=== PATIENT | male | born 1930 | race Caucasian/White ===

== ENCOUNTER 2016-08-26 09:07 | Day surgery (SDC) | payer MEDICARE, OTHER ==
[~2016-08-26 09:07] MED LIST: DIPHENHYDRAMINE HCL 50 MG/ML VIAL ONE; EPINEPHRINE INJ 1 MG/10 ML DISP.SYRIN ONE; FENTANYL CITRATE INJ/PF 100 MCG/2 ML AMPUL ONE; FLUMAZENIL INJ 0.5 MG/5 ML VIAL IV ONE; GLUCAGON,HUMAN RECOMB 1 MG INJ ONE; MIDAZOLAM 2 MG/2 ML INJ ONE; NALOXONE HCL INJ/PF 0.4 MG/1 ML SDV ONE; ONDANSETRON HCL INJ/PF 4 MG/2 ML SDV ONE; PROMETHAZINE HCL INJ 25 MG/1 ML VIAL ONE
--- NOTE | 2016-08-26 10:27 | Operative Report ---
Operative Report DATE OF SURGERY: 08/26/16 Operative Report: The risks, benefits and alternatives of the procedure including risks of bleeding, perforation requiring surgery are explained to the patient detail and informed consent is obtained. Patient is placed in a left lateral decubital position. A rectal examination was done which did not reveal any masses tears or fissures. Timeout is called. 2 mg of Versed administered. An Olympus videoscope was inserted into the patient's rectum keeping the lumen in site at all times the scope was then gradually advanced all the way to the cecum. The cecum as identified by the usual anatomical landmarks including the ileocecal valve as well as the appendiceal office. Photodocumentation was obtained. Because of the patient's complaints in the right lower quadrant and abdominal distention in the area intubation of the terminal ileum is done mild terminal ileitis is noted biopsies obtained. Prep is good photodocumentation is obtained. The scope was then sequentially pulled back via the rest segments of the colon including the ascending colon hepatic flexure answers colon splenic flexure descending colon and finally into the rectosigmoid colon. Mucosa does otherwise appeared to be normal. Retroflexion maneuvers performed. Severe diverticulosis is noted. PREOPERATIVE DIAGNOSIS: Right lower quadrant discomfort, abdominal distention. POSTOPERATIVE DIAGNOSIS: Mild terminal ileitis. Severe sigmoid diverticulosis. OPERATION: Colonoscopy with biopsy. SURGEON: DARCIE BUTLER ANESTHESIA: Moderate Sedation - 2 mg Versed TISSUE REMOVED OR ALTERED: Terminal ileal specimens obtained COMPLICATIONS: None. ESTIMATED BLOOD LOSS: none. INTRAOPERATIVE FINDINGS: No other masses, AVMs, ischemia noted. PROCEDURE: Patient tolerated the procedure well. No immediate postprocedure complications are noted. Patient is discharged in good condition. Date of discharge 08/26/2016. Discharge diet: Regular. Discharge activity: Regular. We'll await on biopsies. 2-3 week follow-up to discuss findings. Patient is instructed to go to emergency room or call the office should there be any further problems or questions.
[2016-08-26 11:22] VITALS: BP 115/59
== END 2016-08-26 11:20 | disposition home or self-care (01) ==
LOC: END 09:07
PROVIDERS: ATTEND Internal Medicine Gastroenterology
PROC: 0DBB8ZX Excision of Ileum, Via Natural or Artificial Opening Endoscopic, Diagnostic (ICD-10-PCS; principal; 2016-08-26 09:30)
DX: K52.9 Noninfective gastroenteritis and colitis, unspecified (principal); K57.30 Diverticulosis of large intestine without perforation or abscess without bleeding; I10 Essential (primary) hypertension; Z79.899 Other long term (current) drug therapy; Z79.82 Long term (current) use of aspirin; Z88.1 Allergy status to other antibiotic agents; Z88.8 Allergy status to other drugs, medicaments and biological substances
CPT/HCPCS: 45380; 88305 ×2; J2250; J0171; J1200; J1610; J2310; J2405; J2550; J3010; J3490

== ENCOUNTER → 2016-12-28 | Outpatient (CLI) | payer MEDICARE ==
[2016-12-28 10:05] LABS: ALANINE AMINOTRANSFERASE 34 U/L (21-72); ALBUMIN 4.3 g/dL (3.5-5.0); ALKALINE PHOSPHATASE 61 U/L (38-126); ASPARTATE AMINO TRANSFERASE 31 U/L (17-59); BILIRUBIN,DIRECT 0.2 mg/dL (0.0-0.4); BILIRUBIN,TOTAL 0.8 mg/dL (0.2-1.3); CHOLESTEROL 106.89 mg/dL (0-200); Direct HDL 53 mg/dL (>40); TOTAL PROTEIN 6.9 g/dL (6.3-8.2); TRIGLYCERIDES 67 mg/dL (<150)
[2016-12-28 10:17] LABS: DIRECT LDL 34 mg/dL (<100)
== END ==
LOC: OD 08:30
PROVIDERS: ATTEND Internal Medicine Cardiovascular Disease
DX: E78.00 Pure hypercholesterolemia, unspecified (principal); Z79.899 Other long term (current) drug therapy
CPT/HCPCS: 36415; 80061; 80076

== ENCOUNTER → 2017-03-26 | Outpatient (CLI) | payer OTHER ==
[2017-03-26 08:33] LABS: ANION GAP 12 (5-19); BLOOD UREA NITROGEN 16 mg/dL (7-20); CALCIUM 9.6 mg/dL (8.4-10.2); CARBON DIOXIDE 25 mmol/L (22-30); CHLORIDE 101 mmol/L (98-107); CREATININE RESULT 0.88 mg/dL (0.52-1.25); GLUCOSE 90 mg/dL (75-110); MAGNESIUM 1.9 mg/dL (1.6-2.3); POTASSIUM 3.6 mmol/L (3.6-5.0); SODIUM 137.9 mmol/L (137-145)
== END ==
LOC: OD 07:15
PROVIDERS: ATTEND Internal Medicine Cardiovascular Disease
DX: Z79.899 Other long term (current) drug therapy (principal)
CPT/HCPCS: 36415; 80048; 83735

== ENCOUNTER → 2017-04-26 | Outpatient (CLI) | payer MEDICARE, OTHER ==
[2017-04-26 14:39] LABS: ANION GAP 13 (5-19); BLOOD UREA NITROGEN 23 mg/dL (7-20); CALCIUM 10.1 mg/dL (8.4-10.2); CARBON DIOXIDE 24 mmol/L (22-30); CHLORIDE 93 mmol/L (98-107); CREATININE RESULT 1.05 mg/dL (0.52-1.25); GLUCOSE 96 mg/dL (75-110); POTASSIUM 4.5 mmol/L (3.6-5.0); SODIUM 130.1 mmol/L (137-145)
== END ==
LOC: OD 13:17
PROVIDERS: ATTEND Internal Medicine Cardiovascular Disease
DX: Z79.899 Other long term (current) drug therapy (principal)
CPT/HCPCS: 36415; 80048

== ENCOUNTER → 2017-10-19 | Outpatient (CLI) | payer MEDICARE ==
[2017-10-19 10:23] LABS: BLOOD UREA NITROGEN 26 mg/dL (7-20); CALCIUM 10.5 mg/dL (8.4-10.2); GLUCOSE 96 mg/dL (75-110)
[2017-10-19 10:24] LABS: ALANINE AMINOTRANSFERASE 36 U/L (21-72); ALBUMIN 4.8 g/dL (3.5-5.0); ALKALINE PHOSPHATASE 55 U/L (38-126); ANION GAP 10 (5-19); ASPARTATE AMINO TRANSFERASE 30 U/L (17-59); BILIRUBIN,DIRECT 0.4 mg/dL (0.0-0.4); BILIRUBIN,TOTAL 0.8 mg/dL (0.2-1.3); CARBON DIOXIDE 24 mmol/L (22-30); CHLORIDE 98 mmol/L (98-107); CHOLESTEROL 113.46 mg/dL (0-200); SODIUM 132.4 mmol/L (137-145); TOTAL PROTEIN 7.7 g/dL (6.3-8.2); TRIGLYCERIDES 76 mg/dL (<150)
[2017-10-19 10:34] LABS: DIRECT LDL 34 mg/dL (<100)
== END ==
LOC: OD 09:11
PROVIDERS: ATTEND Internal Medicine Cardiovascular Disease
DX: I25.10 Atherosclerotic heart disease of native coronary artery without angina pectoris (principal); E78.00 Pure hypercholesterolemia, unspecified; E87.5 Hyperkalemia; I10 Essential (primary) hypertension; Z79.899 Other long term (current) drug therapy
CPT/HCPCS: 36415; 80048; 80061; 80076; 83735

== ENCOUNTER → 2017-11-27 | Outpatient (CLI) | payer MEDICARE ==
[2017-11-27 09:48] LABS: ANION GAP 14 (5-19); BLOOD UREA NITROGEN 38 mg/dL (7-20); CALCIUM 10.5 mg/dL (8.4-10.2); CARBON DIOXIDE 26 mmol/L (22-30); CHLORIDE 99 mmol/L (98-107); GLUCOSE 103 mg/dL (75-110); POTASSIUM 4.8 mmol/L (3.6-5.0); SODIUM 139.2 mmol/L (137-145)
== END ==
LOC: OD 08:05
PROVIDERS: ATTEND Internal Medicine Cardiovascular Disease
DX: I10 Essential (primary) hypertension (principal); Z79.899 Other long term (current) drug therapy
CPT/HCPCS: 36415; 80048

== ENCOUNTER → 2018-01-04 | Outpatient (CLI) | payer MEDICARE | LOC: OD 08:31 | PROVIDERS: ATTEND Family Medicine | DX: R10.13 Epigastric pain (principal) | CPT/HCPCS: 36415; 82565 ==

== ENCOUNTER → 2018-01-05 | Outpatient (CLI) | payer MEDICARE ==
--- NOTE | 2018-01-05 16:27 | RADIOLOGY REPORT (SQ) ---
EXAM DESCRIPTION: CT ABDOMEN ORAL CONTRAST ONLY COMPLETED DATE/TIME: 01/05/2018 2:34 pm REASON FOR STUDY: EPIGASTRIC PAIN R10.13 EPIGASTRIC PAIN COMPARISON: None. TECHNIQUE: CT scan of the abdomen performed without intravenous contrast and with oral contrast. Im ages reviewed with lung, soft tissue, and bone windows. Reconstructed coronal and sagittal MPR image s reviewed. All images stored on PACS. All CT scanners at this facility use dose modulation, iterative reconstruction, and/or weight based d osing when appropriate to reduce radiation dose to as low as reasonably achievable (ALARA). [facility]: Dose Right [facility]: CareDose [facility]: Dose Right [facility]: Teradose 4D [facility]: Rapport RADIATION DOSE: CT Rad equipment meets quality standard of care and radiation dose reduction techniq ues were employed. CTDIvol: 5.3 mGy. DLP: 161 mGy-cm.mGy. LIMITATIONS: None. FINDINGS: LOWER CHEST: No significant findings. No nodules or infiltrates. NONCONTRASTED LIVER, SPLEEN, ADRENALS: Evaluation limited by lack of IV contrast. No identified sign ificant masses. Small granulomatous calcifications in the liver and spleen. PANCREAS: No masses. No peripancreatic inflammatory changes. GALLBLADDER: No identified stones by CT criteria. No inflammatory changes to suggest cholecystitis. RIGHT KIDNEY AND URETER: No suspicious masses. Assessment limited by lack of IV contrast. No signif icant calcifications. No hydronephrosis or hydroureter. LEFT KIDNEY AND URETER: No suspicious masses. Assessment limited by lack of IV contrast. No signifi cant calcifications. No hydronephrosis or hydroureter. AORTA AND RETROPERITONEUM: Atherosclerosis with prominent plaques at the origins of the celiac and SM A. BOWEL AND PERITONEAL CAVITY: Questionable smooth ovoid mass in the posterior stomach versus dependent solid food material. See images 9 through 15. Numerous diverticular arising from the descending an d sigmoid colon. APPENDIX: Not included. ABDOMINAL WALL: No abdominal wall hernias. BONES: Chronic lower thoracic compression changes. OTHER: No other significant finding. IMPRESSION: 1. Questionable gastric mass versus dependent solid food material. 2. Atherosclerosis as described. 3. Diverticulosis coli. 4. Chronic changes in the spine. TECHNICAL DOCUMENTATION: JOB ID: [id number] Quality ID # [id number]: Final reports with documentation of one or more dose reduction techniques (e.g., Au tomated exposure control, adjustment of the mA and/or kV according to patient size, use of iterative reconstruction technique) 2010 [employer]- All Rights Reserved Reading location - IP/workstation name: [email or web address]
== END ==
LOC: RAD 07:45
PROVIDERS: ATTEND Family Medicine
DX: R10.13 Epigastric pain (principal)
CPT/HCPCS: 74150

== ENCOUNTER 2018-01-19 09:55 | Day surgery (SDC) | payer MEDICARE ==
[2018-01-19] MEDS ORDERED: DIPHENHYDRAMINE HCL 50 MG/ML VIAL ONE (10:09)
[2018-01-19] MEDS ORDERED: ONDANSETRON HCL INJ/PF 4 MG/2 ML SDV ONE (10:09)
[2018-01-19] MEDS ORDERED: GLUCAGON,HUMAN RECOMB 1 MG INJ ONE (10:10)
[2018-01-19] MEDS ORDERED: FENTANYL CITRATE INJ/PF 100 MCG/2 ML AMPUL ONE (10:10)
[2018-01-19] MEDS ORDERED: NALOXONE HCL INJ/PF 0.4 MG/1 ML SDV ONE (10:10)
[2018-01-19] MEDS ORDERED: EPINEPHRINE INJ 1 MG/10 ML DISP.SYRIN ONE (10:10)
[2018-01-19] MEDS ORDERED: FLUMAZENIL INJ 0.5 MG/5 ML VIAL ONE (10:10)
[2018-01-19] MEDS: MIDAZOLAM 2 MG/2 ML INJ ONE ×2 (10:30→10:32)
--- NOTE | 2018-01-19 10:43 | Operative Report ---
Operative Report DATE OF SURGERY: 01/19/18 Operative Report: The risks benefits and alternatives of the procedure explained to the patient in detail and informed consent is obtained.A GIF Olympus video scope was inserted into the patient's mouth and hypopharynx, the esophagus is identified intubated and insufflated ,the scope was then advanced through the esophagus stomach and duodenum, retroflexion maneuver is done, the esophagus stomach and first and second portions of the duodenum examined PREOPERATIVE DIAGNOSIS: Epigastric pain. Abnormal CT scan POSTOPERATIVE DIAGNOSIS: No submucosal mass noted. No mucosal lesion noted. Gastritis biopsy OPERATION: EGD with biopsy SURGEON: DARCIE BUTLER ANESTHESIA: Moderate Sedation - 2 mg of Versed. Conscious sedation monitoring time 30 minutes. TISSUE REMOVED OR ALTERED: As noted above. COMPLICATIONS: None. ESTIMATED BLOOD LOSS: None. INTRAOPERATIVE FINDINGS: As noted above. PROCEDURE: Patient tolerated procedure well. No immediate postprocedure complications are noted. Patient discharged in good condition. Discharge date 01/19/2018. Discharge diet: Regular. Discharge activity: Regular. 2-3 week follow-up to discuss findings. Patient is instructed to call the office or proceed to the emergency room should there be any further problems or questions. We will wait on the pathology.
[2018-01-19 11:47] VITALS: BP 123/60
== END 2018-01-19 11:50 | disposition home or self-care (01) ==
LOC: END 09:55
PROVIDERS: ATTEND Internal Medicine Gastroenterology
DX: K29.50 Unspecified chronic gastritis without bleeding (principal); K57.30 Diverticulosis of large intestine without perforation or abscess without bleeding; I10 Essential (primary) hypertension; I51.9 Heart disease, unspecified; Z79.899 Other long term (current) drug therapy; Z79.82 Long term (current) use of aspirin; Z79.51 Long term (current) use of inhaled steroids
CPT/HCPCS: 43239; 88342 ×2; 88305 ×2; J2250; J0171; J1200; J1610; J2310; J2405; J3010; J3490

== ENCOUNTER 2018-01-29 14:10 | Inpatient (IN) | payer MEDICARE ==
--- NOTE | 2018-01-29 15:09 | ER Document Report ---
ED Medical Screen (RME) - General Chief Complaint: Abdominal Pain Stated Complaint: ABDOMINAL PAIN/WEAKNESS Time Seen by Provider: 01/29/18 14:56 Notes: 87-year-old male. Diarrhea for approximately 6 weeks. Followed by GI. Upper endoscopy 2 weeks ago. Was placed on Cipro and Flagyl on . Continues to have abdominal pain and diarrhea. Mostly pain in the left lower quadrant. Losing weight. Always feeling sick now. CAT scan in the last month as well which was reportedly normal. I have greeted and performed a rapid initial assessment of this patient. A comprehensive ED assessment and evaluation of the patient, analysis of test results and completion of the medical decision making process will be conducted by additional ED providers. TRAVEL OUTSIDE OF THE [place] IN LAST 30 DAYS: No - Related Data Allergies/Adverse Reactions: cephalexin [Cephalexin] Allergy (Severe, Verified 01/19/18 10:07) unsure doxycycline [Doxycycline] Allergy (Severe, Verified 01/19/18 10:07) unsure Iodinated Contrast- Oral and IV Dye [IV Dye, Iodine Containing] Allergy (Severe , Verified 01/19/18 10:07) rash levofloxacin [From Levaquin] Allergy (Severe, Verified 01/19/18 10:07) unsure Past Medical History - Social History Chew tobacco use (# tins/day): No Frequency of alcohol use: Rare Drug Abuse: None - Past Medical History Cardiac Medical History: Reports: Hx Hypercholesterolemia, Hx Hypertension - on meds Denies: Hx Coronary Artery Disease, Hx Heart Attack Pulmonary Medical History: Denies: Hx Asthma, Hx Bronchitis, Hx COPD, Hx Pneumonia Neurological Medical History: Denies: Hx Cerebrovascular Accident, Hx Seizures Renal/ Medical History: Denies: Hx Peritoneal Dialysis GI Medical History: Reports: Hx Gastroesophageal Reflux Disease, Hx Hiatal Hernia. 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 Denies: Hx Open Heart Surgery, Hx Pacemaker - Immunizations Hx Diphtheria, Pertussis, Tetanus Vaccination: Yes Influenza Administration Date for 05/2017 - 10/2017 Season: 05/16/17 Review of Systems - Review of Systems Notes: Abdomen: Nausea, diarrhea, abdominal pain General: Weak, losing weight Constitutional: Malaise, Weakness Gastrointestinal: Abdominal pain, Diarrhea, Nausea Genitourinary: denies: Burning, Dysuria, Discharge Male Genitourinary: denies: Testicular pain, Penile discharge Musculoskeletal: denies: Back pain, Joint pain, Muscle pain Skin: denies: Dryness, Lesions, Lumps, Rash Hematologic/Lymphatic: denies: Anemia, Blood clots, Easy bleeding, Easy bruising Neurological/Psychological: denies: Confusion, Weakness, Numbness Physical Exam - Vital signs Vitals: Temp Pulse Resp BP Pulse Ox 98.2 F 57 L 20 133/51 H 96 01/29/18 14:28 01/29/18 14:01/29/18 14:01/29/18 14:01/29/18 14:28 Interpretation: Normal - General General appearance: Appears well, Alert - Respiratory Respiratory status: No respiratory distress Chest status: Nontender Breath sounds: Normal Chest palpation: Normal - Cardiovascular Rhythm: Regular Heart sounds: Normal auscultation Murmur: No - Abdominal Inspection: Normal Distension: No distension Bowel sounds: Normal Tenderness: Tender, Other - Mild tenderness left lower quadrant Organomegaly: No organomegaly - Extremities General upper extremity: Normal inspection, Nontender, Normal color, Normal ROM , Normal temperature General lower extremity: Normal inspection, Nontender, Normal color, Normal ROM , Normal temperature, Normal weight bearing. No: Ranjit's sign Course - Vital Signs Vital signs: Temp Pulse Resp BP Pulse Ox 98.2 F 57 L 20 133/51 H 96 01/29/18 14:28 01/29/18 14:01/29/18 14:01/29/18 14:01/29/18 14:28 Doctor's Discharge - Discharge Referrals: DARCIE BUTLER MD [Primary Care Provider] - Follow up as needed
[2018-01-29 16:16] LABS: ABSOLUTE EOSINOPHILS # (AUTO) 0.1 10^3/uL (0.0-0.6); ABSOLUTE LYMPHOCYTES (AUTO) 0.4 10^3/uL (0.5-4.7); ABSOLUTE MONOCYTES (AUTO) 0.7 10^3/uL (0.1-1.4); ABSOLUTE NEUT (AUTO) 5.6 10^3/uL (1.7-8.2); BASOPHILS % (AUTO) 0.6 % (0-2); EOSINOPHILS % (AUTO) 0.9 % (0-6); HEMATOCRIT 35.5 % (37.9-51.0); HEMOGLOBIN 12.7 g/dL (13.5-17.0); LYMPHOCYTES % (AUTO) 6.4 % (13-45); MEAN CORPUSCULAR HEMOGLOBIN 32.8 pg (27.0-33.4); MEAN CORPUSCULAR HGB CONC 35.8 g/dL (32.0-36.0); MEAN CORPUSCULAR VOLUME 92 fl (80-97); MONOCYTES % (AUTO) 10.3 % (3-13); PLATELET COUNT 194 10^3/uL (150-450); RED BLOOD COUNT 3.87 10^6/uL (4.35-5.55); RED CELL DISTRIBUTION WIDTH 12.6 % (11.5-14.0); SEGMENTED NEUTROPHILS % (AUTO) 81.8 % (42-78); TOTAL CELLS COUNTED % (AUTO) 100 %; WHITE BLOOD COUNT 6.8 10^3/uL (4.0-10.5)
[2018-01-29 16:30] LABS: ALANINE AMINOTRANSFERASE 29 U/L (21-72); ALBUMIN 4.7 g/dL (3.5-5.0); ALKALINE PHOSPHATASE 94 U/L (38-126); ANION GAP 15 (5-19); ASPARTATE AMINO TRANSFERASE 32 U/L (17-59); BILIRUBIN,DIRECT 0.3 mg/dL (0.0-0.4); BILIRUBIN,TOTAL 0.8 mg/dL (0.2-1.3); BLOOD UREA NITROGEN 26 mg/dL (7-20); CALCIUM 9.9 mg/dL (8.4-10.2); CARBON DIOXIDE 22 mmol/L (22-30); CHLORIDE 91 mmol/L (98-107); GLUCOSE 88 mg/dL (75-110); LIPASE 47.6 U/L (23-300); POTASSIUM 4.7 mmol/L (3.6-5.0); SODIUM 127.5 mmol/L (137-145); TOTAL PROTEIN 7.7 g/dL (6.3-8.2)
--- NOTE | 2018-01-29 16:35 | ER Document Report ---
ED GI/ - General Chief Complaint: Abdominal Pain Stated Complaint: ABDOMINAL PAIN/WEAKNESS Time Seen by Provider: 01/29/18 14:56 Notes: Patient is here because he is continuing to have abdominal pains and diarrhea which have been going on for a month or more. He indicates pain in the left side of his abdomen. He had a CT scan done about 4 weeks ago here at this hospital showing a possible gastric mass. Dr. Mcdonald has done an upper GI scope and family and patient are not sure of those results. Then, Wednesday, just 3 days ago, patient had a CT scan done at a local outpatient facility. His lighting engineering technician, Dr. Butler, put him on Cipro and Flagyl afternoon for possible treatment for diverticulitis. Patient is here today because he says is not doing any better. He feels weak and tired and continues to have pain. Says he thinks he has lost about 10 pounds over the past year. He has not had any significant nausea or vomiting, but has had diarrhea every day. Does not see blood in his diarrhea. Is not aware of any fever. His only abdominal surgery was a hernia repair. TRAVEL OUTSIDE OF THE [place] IN LAST 30 DAYS: No - Related Data Allergies/Adverse Reactions: cephalexin [Cephalexin] Allergy (Severe, Verified 01/19/18 10:07) unsure doxycycline [Doxycycline] Allergy (Severe, Verified 01/19/18 10:07) unsure Iodinated Contrast- Oral and IV Dye [IV Dye, Iodine Containing] Allergy (Severe , Verified 01/19/18 10:07) rash levofloxacin [From Levaquin] Allergy (Severe, Verified 01/19/18 10:07) unsure Past Medical History - Social History Smoking Status: Former Smoker Chew tobacco use (# tins/day): No Frequency of alcohol use: Rare Drug Abuse: None Family History: Reviewed & Not Pertinent Patient has suicidal ideation: No Patient has homicidal ideation: No - Past Medical History Cardiac Medical History: Reports: Hx Hypercholesterolemia, Hx Hypertension - on meds Denies: Hx Coronary Artery Disease, Hx Heart Attack Pulmonary Medical History: Denies: Hx Asthma, Hx Bronchitis, Hx COPD, Hx Pneumonia Neurological Medical History: Denies: Hx Cerebrovascular Accident, Hx Seizures GI Medical History: Reports: Hx Gastroesophageal Reflux Disease, Hx Hiatal Hernia. 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 EENT: Denies eye, ear, nose or mouth or throat pain or other symptoms. CARDIOVASCULAR: Denies chest pain. RESPIRATORY: Denies cough, chest congestion, or shortness of breath. GASTROINTESTINAL: See HPI. Denies nausea or vomiting, diarrhea daily, no blood present. GENITOURINARY: Denies difficulty or painful urinating, urinary frequency, blood in urine. MUSCULOSKELETAL: Denies back or neck pain. Denies joint pain or swelling. SKIN: Denies rash or skin lesions. NEUROLOGICAL: Denies LOC or altered mental status. Denies headache. Denies sensory loss or motor deficits. ALL OTHER SYSTEMS REVIEWED AND NEGATIVE. Physical Exam - Vital signs Vitals: Temp Pulse Resp BP Pulse Ox 98.2 F 57 L 20 133/51 H 96 01/29/18 14:28 01/29/18 14:28 01/29/18 14:28 01/29/18 14:28 01/29/18 14:28 Interpretation: Normal - Notes Notes: PHYSICAL EXAMINATION: GENERAL: Well-appearing, in no acute distress. Vital signs are all normal. HEAD: Atraumatic, normocephalic. EYES: Pupils equal round and reactive to light, extraocular movements intact. ENT: oropharynx clear without exudates. Moist mucous membranes. NECK: Normal range of motion, supple. LUNGS: Breath sounds clear and equal bilaterally. HEART: Regular rate and rhythm without murmurs. ABDOMEN: Soft, some tenderness of the left side of the abdomen, but no guarding or rebound. No masses. BACK: No tenderness throughout entire back. EXTREMITIES: Normal range of motion without pain. NEUROLOGICAL: Normal speech, weak, elderly gait. Normal sensory, motor, and reflex exams. Awake, alert, and oriented x3. Cranial nerves normal. PSYCH: Normal mood, normal affect. SKIN: Warm, dry, no rashes. Course - Vital Signs Vital signs: Temp Pulse Resp BP Pulse Ox 97.4 F 57 L 19 140/68 H 98 01/29/18 18:51 01/29/18 14:28 01/29/18 19:00 01/29/18 19:00 01/29/18 19:00 - Laboratory Result Diagrams: 01/29/18 15:55 01/29/18 15:55 Laboratory results interpreted by me: 01/29/18 01/29/18 01/29/18 15:55 15:55 17:20 RBC 3.87 L Hgb 12.7 L Hct 35.5 L Seg Neutrophils % 81.8 H Lymphocytes % 6.4 L Absolute Lymphocytes 0.4 L Sodium 127.5 L Chloride 91 L BUN 26 H Creatinine 1.27 H Est GFR (Non-Af Amer) 54 L Urine Ketones TRACE H Urine Blood SMALL H Ur Leukocyte Esterase TRACE H Discharge - Discharge Clinical Impression: Abdominal pain, Diverticulosis, Hyponatremia, Mild renal insufficiency Condition: Stable Disposition: ADMITTED OBSERVATION Admitting Provider: [facility] Admitted: Medical Floor Referrals: DARCIE BUTLER MD [ACTIVE STAFF] - Follow up as needed
[2018-01-29] MEDS ORDERED: 1/2 NORMAL SALINE 1,000 ML IV ONE (17:00)
[2018-01-29] MEDS ORDERED: NORMAL SALINE 1000 ML 1,000 ML IV ONE ×2 (17:00→20:20)
[2018-01-29 18:32] LABS: APPEARANCE,URINE CLEAR; BILIRUBIN,URINE NEGATIVE (NEGATIVE); COLOR,URINE YELLOW; GLUCOSE, URINE NEGATIVE (NEGATIVE); KETONES,URINE TRACE mg/dL (NEGATIVE); LEUKOCYTE ESTERASE,URINE TRACE (NEGATIVE); NITRITE,URINE NEGATIVE (NEGATIVE); PROTEIN,URINE NEGATIVE (NEGATIVE); URINE SPECIFIC GRAVITY 1.012; UROBILINOGEN,URINE NEGATIVE mg/dL (<2.0)
--- NOTE | 2018-01-29 18:47 | RADIOLOGY REPORT (SQ) ---
EXAM DESCRIPTION: CT ABD/PELVIS WITH IV ORAL COMPLETED DATE/TIME: 01/29/2018 6:19 pm REASON FOR STUDY: abd pain, diarrhea COMPARISON: CT abdomen and pelvis 07/21/2015 TECHNIQUE: CT scan of the abdomen and pelvis performed using helical scanning technique with dynamic intravenous contrast injection. No oral contrast. Images reviewed with lung, soft tissue, and bone windows. Reconstructed coronal and sagittal MPR images reviewed. Delayed images for evaluation of the urinary system also acquired. All images stored on PACS. All CT scanners at this facility use dose modulation, iterative reconstruction, and/or weight based d osing when appropriate to reduce radiation dose to as low as reasonably achievable (ALARA). [facility]: Dose Right [facility]: CareDose [facility]: Dose Right [facility]: Teradose 4D [facility]: [employer] CONTRAST TYPE AND DOSE: contrast/concentration: Isovue 300.00 mg/ml; Total Contrast Delivered: 79.0 ml; Total Saline Delivered: 67.0 ml RENAL FUNCTION: BUN 26; creatinine 1.27 RADIATION DOSE: CT Rad equipment meets quality standard of care and radiation dose reduction techniq ues were employed. CTDIvol: 7.3 - 10.6 mGy. DLP: 849 mGy-cm.. LIMITATIONS: None. FINDINGS: LOWER CHEST: Right lung base calcified granuloma. Pericardial calcifications likely repre senting sequela of previous pericarditis. No acute or significant findings. LIVER: Normal size. No masses. No dilated ducts. Scattered punctate parenchymal calcification, con sistent with sequela of prior granulomatous disease. SPLEEN: Normal size. Scattered granulomas, unchanged. PANCREAS: No masses. No significant calcifications. No adjacent inflammation or peripancreatic fluid collections. Pancreatic duct not dilated. GALLBLADDER: No identified stones by CT criteria. No inflammatory changes to suggest cholecystitis. ADRENAL GLANDS: No significant masses or asymmetry. RIGHT KIDNEY AND URETER: No solid masses. No significant calcifications. No hydronephrosis or hyd roureter. LEFT KIDNEY AND URETER: No solid masses. No significant calcifications. No hydronephrosis or hydr oureter. AORTA AND VESSELS: No aneurysm. No dissection. Renal arteries, SMA, celiac without stenosis. RETROPERITONEUM: No retroperitoneal adenopathy, hemorrhage or masses. BOWEL AND PERITONEAL CAVITY: Rectosigmoid diverticulosis. No masses or inflammatory changes. No free fluid or peritoneal masses. APPENDIX: Not visualized. PELVIS: No mass. No free fluid. Normal bladder. ABDOMINAL WALL: Fat containing left inguinal hernia. Tiny umbilical hernia. BONES: Compression deformities of the T10 and T12 vertebral bodies. The T12 abnormality was present on comparison CT imaging. OTHER: No other significant finding. IMPRESSION: Diverticulosis without acute inflammatory changes. Other chronic and incidental finding s as detailed above. TECHNICAL DOCUMENTATION: JOB ID: [id number] Quality ID # [id number]: Final reports with documentation of one or more dose reduction techniques (e.g., Au tomated exposure control, adjustment of the mA and/or kV according to patient size, use of iterative reconstruction technique) 2010 [employer]- All Rights Reserved Reading location - IP/workstation name: [email or web address]
[2018-01-29] MEDS ORDERED: ACETAMINOPHEN 325 MG TABLET PO PRN (20:13)
[2018-01-29] MEDS ORDERED: METRONIDAZOLE 250 MG TABLET PO SCH (22:00)
[2018-01-30 06:48] LABS: ANION GAP 17 (5-19); BLOOD UREA NITROGEN 19 mg/dL (7-20); CALCIUM 9.7 mg/dL (8.4-10.2); CARBON DIOXIDE 19 mmol/L (22-30); CHLORIDE 94 mmol/L (98-107); GLUCOSE 74 mg/dL (75-110); POTASSIUM 4.4 mmol/L (3.6-5.0); SODIUM 129.6 mmol/L (137-145)
--- NOTE | 2018-01-30 06:53 | PDOC H&P ---
History of Present Illness Admission Date/PCP: 01/29/18 19:38 AURORA HERNANDEZ MD Patient complains of: epigastric pain History of Present Illness: CECILY ESTRADA is a 87 year old male with 7 weeks epigastric pain bloating pc & with bending or twisting with constipation. He had mild BUQ tenderness to palpation and lumbar rotation and leaning. Linzess fixed the constipation but not the pain. Now he inconsistently claims diarrhea. CT showed possible gastric mass but endoscopy bu Dr Blackwell ruled that out. He had colonoscopy and [address] scans: one outside and one yesterday showing only tics. He lost 8# in the last month and 5# in the year before that. 3d ago Dr Blackwell started cipro & metronidazole but that was stopped in ER because of a negative Cdiff and lack of diverticulitis. He & nurse says he is getting generally weaker. Past Medical History Cardiac Medical History: Reports: Coronary Artery Disease, Hyperlipidema, Hypertension - on meds Denies: Myocardial Infarction Pulmonary Medical History: Denies: Asthma, Bronchitis, Chronic Obstructive Pulmonary Disease (COPD), Pneumonia Neurological Medical History: Denies: Seizures Endocrine Medical History: Reports: None Renal/ Medical History: Reports: None Malignancy Medical History: Reports: Skin Cancer GI Medical History: Reports: Gastroesophageal Reflux Disease, Hiatal Hernia Denies: Hepatitis Musculoskeltal Medical History: Reports: Arthritis - generalized Psychiatric Medical History: Reports: None Traumatic Medical History: Reports: None Hematology: Denies: Anemia, Sickle Cell Disease Infectious Medical History: Reports: None Past Surgical History Past Surgical History: Reports: Coronary Artery Bypass Graft - 2014, Herniorrhaphy, Tonsillectomy Denies: Pacemaker Social History Information Source: Dr. Carpenter Lives with: Family Smoking Status: Former Smoker Last Time Smoked: 1989 Frequency of Alcohol Use: Social Hx Recreational Drug Use: No Drugs: None Hx Prescription Drug Abuse: No - Advance Directive Resuscitation Status: Full Code Family History Family History: CAD, Hypertension, Thyroid Disfunction, Other - B S polycystic kidneys Parental Family History Reviewed: Yes Children Family History Reviewed: Yes Sibling(s) Family History Reviewed.: Yes Medication/Allergy Home Medications: Rosuvastatin Calcium [Crestor 10 mg Tablet] 10 mg PO DAILY 01/18/18 Spironolactone 25 mg PO DAILY 01/18/18 Hydralazine HCl 25 mg PO BID 01/29/18 Metoprolol Tartrate [Metoprolol Tartrate] 12.5 mg PO BID 01/29/18 Metronidazole [Metronidazole] 1 tab PO Q12 01/29/18 Nitroglycerin 0.4 mg SL ASDIR PRN 01/29/18 Ciprofloxacin HCl [Cipro] 250 mg BID 01/30/18 Hydrochlorothiazide [Hydrochlorothiazide] 25 mg DAILY 01/30/18 Allergies/Adverse Reactions: cephalexin [Cephalexin] Allergy (Severe, Verified 01/19/18 10:07) unsure doxycycline [Doxycycline] Allergy (Severe, Verified 01/19/18 10:07) unsure Iodinated Contrast- Oral and IV Dye [IV Dye, Iodine Containing] Allergy (Severe , Verified 01/19/18 10:07) rash levofloxacin [From Levaquin] Allergy (Severe, Verified 01/19/18 10:07) unsure Review of Systems Constitutional: PRESENT: headache(s), weakness, weight loss Nose, Mouth, and Throat: PRESENT: sore throat Cardiovascular: ABSENT: chest pain, dyspnea on exertion Respiratory: ABSENT: cough Gastrointestinal: PRESENT: abdominal pain, bloating, diarrhea. ABSENT: hematochezia, melena, vomiting Genitourinary: ABSENT: difficulty urinating, dysuria, hematuria Physical Exam Vital Signs: Temp Pulse Resp BP Pulse Ox 97.6 F 56 L 16 108/52 L 100 01/30/18 02:00 01/30/18 02:00 01/30/18 02:00 01/30/18 02:00 01/30/18 02:00 Intake & Output 01/28/18 01/29/18 01/30/18 07:59 07:59 07:59 Intake Total 1000 Output Total 500 Balance 500 Weight 130 lb 11.746 oz General appearance: PRESENT: no acute distress, thin Eye exam: ABSENT: conjunctival injection, scleral icterus Mouth exam: PRESENT: moist Neck exam: ABSENT: lymphadenopathy, tenderness, thyromegaly, tracheal deviation Respiratory exam: PRESENT: clear to auscultation skyler Cardiovascular exam: ABSENT: diastolic murmur, irregular rhythm, systolic murmur GI/Abdominal exam: ABSENT: mass, organolmegaly, tenderness Extremities exam: ABSENT: pedal edema Neurological exam: PRESENT: oriented to situation Psychiatric exam: PRESENT: appropriate affect Results Laboratory Results: 01/29/18 20:00 Stool Occult Blood NEGATIVE Abnormal - 24 hr 01/29/18 01/29/18 01/29/18 15:55 15:55 17:20 RBC 3.87 L Hgb 12.7 L Hct 35.5 L Seg Neutrophils % 81.8 H Lymphocytes % 6.4 L Absolute Lymphocytes 0.4 L Sodium 127.5 L Chloride 91 L BUN 26 H Creatinine 1.27 H Est GFR (Non-Af Amer) 54 L Urine Ketones TRACE H Urine Blood SMALL H Ur Leukocyte Esterase TRACE H Impressions: Abdomen/Pelvis CT 01/29/18 15:07 IMPRESSION: Diverticulosis without acute inflammatory changes. Other chronic and incidental findings as detailed above. Assessment & Plan - Diagnosis (1) Hypo-osmolality and hyponatremia Is this a current diagnosis for this admission?: Yes Plan: stop hctz and spironolactone. Saline. (2) Epigastric pain Is this a current diagnosis for this admission?: Yes Plan: Cause unknown after extensive workups. Consult Dr Blackwell. Resume antibiotics? (3) Essential (primary) hypertension Is this a current diagnosis for this admission?: Yes (4) Angina of effort Is this a current diagnosis for this admission?: Yes - Inpatient Certification Based on my medical assessment, after consideration of the patient's comorbidities, presenting symptoms, or acuity I expect that the services needed warrant INPATIENT care.: Yes I certify that my determination is in accordance with my understanding of Medicare's requirements for reasonable and necessary INPATIENT services [42 CFR 412.3e].: Yes Medical Necessity: Failure to Improve With Outpatient Therapy, Significant Comorbidiites Make Outpatient Treatment Too Risky, Need Close Monitoring Due to Risk of Patient Decompensation, Need For IV Fluids, Need for Pain Control, Risk of Complication if Not Cared For in Hospital, Risk of Diagnosis Which Will Require Inpatient Eval/Care/Monitoring
--- NOTE | 2018-01-30 09:58 | Progress Note ---
Provider Note Provider Note: patient admitted from ED has outpatient work up to include negative EGD, negative SBFT ( Dr Kang), previous colonoscopy 2 years ago negative, presumed to have diverticulitis was started on antibiotics patient present to ED, CT scan with oral contrast does not show any diverticulitis or pancreatic etiology patient 's abdominal pain does get worse with movement no incarcerated hernia noted patient has hyponatremia antibiotics has been stopped, negative C.Diff would consider other work up to include a possible angiogram to exclude possible mesenteric ischemia, however other etiology ( non GI) may have to be considered as well. consider Nephrology work as well full consult to be dictated
[2018-01-30] MEDS: HYDRALAZINE HCL 25 MG TABLET PO SCH ×2 (10:02→17:41)
[2018-01-30] MEDS: ENOXAPARIN SODIUM INJ 30 MG/0.3 ML DISP.SYRIN SUBCUT SCH (10:03)
[2018-01-30] MEDS: METOPROLOL TARTRATE 25 MG TABLET PO SCH ×2 (10:03→17:42)
[2018-01-31 07:14] LABS: ANION GAP 14 (5-19); BLOOD UREA NITROGEN 25 mg/dL (7-20); CALCIUM 9.6 mg/dL (8.4-10.2); CARBON DIOXIDE 20 mmol/L (22-30); CHLORIDE 95 mmol/L (98-107); GLUCOSE 89 mg/dL (75-110); POTASSIUM 4.3 mmol/L (3.6-5.0); SODIUM 129.4 mmol/L (137-145)
--- NOTE | 2018-01-31 08:07 | PDOC PROGRESS REPORT ---
Subjective Progress Note for:: 01/31/18 Subjective:: much better. Less BUQ pain. Wants home. Reason For Visit: HYPONATREMIA Physical Exam Vital Signs: Temp Pulse Resp BP Pulse Ox 97.7 F 52 L 17 107/42 L 98 01/31/18 03:33 01/31/18 03:33 01/31/18 03:33 01/31/18 03:33 01/31/18 03:33 Intake & Output 01/29/18 01/30/18 01/31/18 07:59 07:59 07:59 Intake Total 1000 1047 Output Total 650 Balance 350 1047 Weight 130 lb 11.746 oz 127 lb 10.362 oz General appearance: PRESENT: no acute distress Respiratory exam: PRESENT: clear to auscultation skyler Cardiovascular exam: ABSENT: diastolic murmur, irregular rhythm, systolic murmur GI/Abdominal exam: ABSENT: mass, organolmegaly, tenderness Extremities exam: ABSENT: pedal edema Neurological exam: PRESENT: oriented to situation Psychiatric exam: PRESENT: appropriate affect Results Laboratory Results: 01/31/18 06:28 01/31/18 06:28 Sodium 129.4 L Potassium 4.3 Chloride 95 L Carbon Dioxide 20 L Anion Gap 14 BUN 25 H Creatinine 0.99 Est GFR ( Amer) > 60 Est GFR (Non-Af Amer) > 60 Glucose 89 Calcium 9.6 Impressions: Abdomen/Pelvis CT 01/29/18 15:07 IMPRESSION: Diverticulosis without acute inflammatory changes. Other chronic and incidental findings as detailed above. Assessment & Plan - Diagnosis (1) Epigastric pain Is this a current diagnosis for this admission?: Yes Plan: Improved. Dr Blackwell suggested nephrology consult, but cr back to normal. He is considering angiogram. 4 stools. (2) Hypo-osmolality and hyponatremia Is this a current diagnosis for this admission?: Yes Plan: Na 128 130 129. Iv stopped yesterday am. No hctz or spironolactone since admission. BUN back up off IV. (3) Essential (primary) hypertension Is this a current diagnosis for this admission?: Yes Plan: bp pulse down. Stopped hydralazine & metoprolol. (4) Angina of effort Is this a current diagnosis for this admission?: Yes - Inpatient Certification Medical Necessity: Failure to Improve With Outpatient Therapy, Significant Comorbidiites Make Outpatient Treatment Too Risky, Need Close Monitoring Due to Risk of Patient Decompensation, Risk of Complication if Not Cared For in Hospital, Risk of Diagnosis Which Will Require Inpatient Eval/Care/Monitoring
[2018-01-31] MEDS: ENOXAPARIN SODIUM INJ 30 MG/0.3 ML DISP.SYRIN SUBCUT SCH (10:41)
--- NOTE | 2018-01-31 12:26 | PDOC CONSULTATION ---
Consultation Consult Date: 01/31/18 Attending physician:: DARCIE BUTLER Consult reason:: abdominal pain especially with movement History of Present Illness Admission Date/PCP: 01/29/18 19:38 AURORA HERNANDEZ MD History of Present Illness: CECILY ESTRADA is a 87 year old male There was a brief note that was done yesterday. He has been seen as an outpatient. He was initially referred because of a possible abnormal lesion in his stomach. Patient underwent upper endoscopy. Biopsies are negative. He came back to the office complaining of abdominal pain. Small bowel follow-through is negative. He had a colonoscopy about 2 years ago that showed diverticulosis. He was presumptively treated for diverticulitis as an outpatient. Because of continued problems reported to the emergency room. CT scan with oral contrast was done. No diverticulitis was noted. C. difficile was negative. Antibiotics were stopped. He was subsequently admitted. He had elevated creatinine but that has resolved. He does have hyponatremia. Question of whether he may need an angiogram although the pain is better. Past Medical History Cardiac Medical History: Reports: Coronary Artery Disease, Hyperlipidema, Hypertension - on meds Denies: Myocardial Infarction Pulmonary Medical History: Denies: Asthma, Bronchitis, Chronic Obstructive Pulmonary Disease (COPD), Pneumonia Neurological Medical History: Denies: Seizures Endocrine Medical History: Reports: None Renal/ Medical History: Reports: None Malignancy Medical History: Reports: Skin Cancer GI Medical History: Reports: Gastroesophageal Reflux Disease, Hiatal Hernia Denies: Hepatitis Musculoskeltal Medical History: Reports: Arthritis - generalized Psychiatric Medical History: Reports: None Traumatic Medical History: Reports: None Hematology: Denies: Anemia, Sickle Cell Disease Infectious Medical History: Reports: None Past Surgical History Past Surgical History: Reports: Coronary Artery Bypass Graft - 2015, Herniorrhaphy, Tonsillectomy Denies: Pacemaker Social History Lives with: Family Smoking Status: Former Smoker Last Time Smoked: 1989 Frequency of Alcohol Use: Social Hx Recreational Drug Use: No Drugs: None Hx Prescription Drug Abuse: No - Advance Directive Resuscitation Status: Full Code Family History Family History: CAD, Hypertension, Thyroid Disfunction, Other - B S polycystic kidneys Parental Family History Reviewed: Yes Children Family History Reviewed: Unknown Sibling(s) Family History Reviewed.: Unknown Medication/Allergy Home Medications: Spironolactone 25 mg PO DAILY 01/18/18 Hydralazine HCl 25 mg PO Q12 01/29/18 Metoprolol Tartrate [Metoprolol Tartrate] 12.5 mg PO Q12 01/29/18 Metronidazole [Metronidazole] 1 tab PO [id number] 01/29/18 Nitroglycerin 0.4 mg SL DAILYP PRN 01/29/18 Aspirin [Aspirin EC] 81 mg PO DAILY 01/30/18 Ciprofloxacin HCl [Cipro] 250 mg PO [id number] 01/30/18 Hydrochlorothiazide [Hydrochlorothiazide] 25 mg PO DAILY 01/30/18 Rosuvastatin Calcium [Crestor 20 mg Tablet] 20 mg PO DAILY 01/30/18 Allergies/Adverse Reactions: cephalexin [Cephalexin] Allergy (Severe, Verified 01/19/18 10:07) unsure doxycycline [Doxycycline] Allergy (Severe, Verified 01/19/18 10:07) unsure Iodinated Contrast- Oral and IV Dye [IV Dye, Iodine Containing] Allergy (Severe , Verified 01/19/18 10:07) rash levofloxacin [From Levaquin] Allergy (Severe, Verified 01/19/18 10:07) unsure Review of Systems Constitutional: ABSENT: fever(s), headache(s), night sweats, weakness Eyes: ABSENT: visual disturbances Ears: ABSENT: hearing changes Nose, Mouth, and Throat: ABSENT: mouth pain, sore throat Cardiovascular: ABSENT: edema, orthropnea, palpitations Respiratory: ABSENT: dyspnea, hemoptysis Gastrointestinal: PRESENT: abdominal pain. ABSENT: dysphagia, nausea, vomiting Genitourinary: ABSENT: dysuria, hematuria Musculoskeletal: ABSENT: deformity, joint swelling Integumentary: ABSENT: pruritus Neurological: ABSENT: syncope, tingling, tremor(s), vertigo Endocrine: ABSENT: polydipsia, polyphagia, polyuria Hematologic/Lymphatic: ABSENT: easy bruising, lymphadenopathy Physical Exam Vital Signs: Temp Pulse Resp BP Pulse Ox 98.2 F 59 L 17 93/43 L 100 01/31/18 11:06 01/31/18 11:06 01/31/18 11:06 01/31/18 11:06 01/31/18 11:06 Intake & Output 01/30/18 01/31/18 02/01/18 06:59 06:59 06:59 Intake Total 1000 1047 Output Total 650 Balance 350 1047 Weight 59.3 kg 57.9 kg General appearance: PRESENT: no acute distress, well-developed, well-nourished Head exam: PRESENT: atraumatic, normocephalic Eye exam: PRESENT: EOMI, PERRLA. ABSENT: nystagmus, periorbital swelling, scleral icterus Mouth exam: PRESENT: moist, neck supple Throat exam: ABSENT: tonsillar exudate, tonsillogmegaly Neck exam: ABSENT: meningismus, tenderness, thyromegaly Respiratory exam: PRESENT: symmetrical, unlabored. ABSENT: tachypnea, wheezes Cardiovascular exam: PRESENT: RRR, rubs, +S2 GI/Abdominal exam: PRESENT: soft. ABSENT: rebound, rigid, tenderness Extremities exam: ABSENT: joint swelling Musculoskeletal exam: PRESENT: full ROM Neurological exam: PRESENT: alert, awake, oriented to time, oriented to situation, CN II-XII grossly intact Focused psych exam: ABSENT: restlessness Skin exam: PRESENT: normal color. ABSENT: mottled, pallor, petechiae, urticaria , vesicles Results Laboratory Results: 01/31/18 06:28 01/31/18 06:28 Sodium 129.4 L Potassium 4.3 Chloride 95 L Carbon Dioxide 20 L Anion Gap 14 BUN 25 H Creatinine 0.99 Est GFR ( Amer) > 60 Est GFR (Non-Af Amer) > 60 Glucose 89 Calcium 9.6 Impressions: Abdomen/Pelvis CT 01/29/18 15:07 IMPRESSION: Diverticulosis without acute inflammatory changes. Other chronic and incidental findings as detailed above. Assessment & Plan - Diagnosis (1) Abdominal pain Plan: Unclear etiology. As noted recent EGD, small bowel follow-through, previous colonoscopy done less than 2 years ago are negative. He does have diverticulosis but no evidence of diverticulitis. A lot of his pain seems to be brought on by musculoskeletal movement and turning. Creatinine has improved. Hyponatremia is being treated. At best perhaps mesenteric angiogram can be done. Although his pain does not have features that are consistent with ischemic colitis. We will continue to follow If no other issues can be discharged and followed up as outpatient - Time Time Spent: 50 to 70 Minutes
[2018-02-01 07:24] LABS: ANION GAP 13 (5-19); BLOOD UREA NITROGEN 26 mg/dL (7-20); CALCIUM 9.5 mg/dL (8.4-10.2); CARBON DIOXIDE 18 mmol/L (22-30); CHLORIDE 98 mmol/L (98-107); GLUCOSE 93 mg/dL (75-110); POTASSIUM 4.5 mmol/L (3.6-5.0); SODIUM 129.4 mmol/L (137-145)
[2018-02-01 07:43] VITALS: BP 106/58
--- NOTE | 2018-02-01 07:45 | PDOC DISCHARGE SUMMARY ---
General - Admit/Disc Date/PCP Admission Date/Primary Care Provider: 01/31/18 14:54 AURORA HERNANDEZ MD Discharge Date: 02/01/18 - Discharge Diagnosis (1) Epigastric pain Is this a current diagnosis for this admission?: Yes (2) Hypo-osmolality and hyponatremia Is this a current diagnosis for this admission?: Yes (3) Essential (primary) hypertension Is this a current diagnosis for this admission?: Yes (4) Angina of effort Is this a current diagnosis for this admission?: Yes - Additional Information Resuscitation Status: Full Code Discharge Diet: Regular Discharge Activity: Activity As Tolerated Home Medications: Nitroglycerin 0.4 mg SL DAILYP PRN 01/29/18 Aspirin [Aspirin EC] 81 mg PO DAILY 01/30/18 Rosuvastatin Calcium [Crestor 20 mg Tablet] 20 mg PO DAILY 01/30/18 History of Present Illness History of Present Illness: CECILY ESTRADA is a 87 year old male with 7 weeks epigastric pain bloating pc & with bending or twisting with constipation. He had mild BUQ tenderness to palpation and lumbar rotation and leaning. Linzess fixed the constipation but not the pain. Now he inconsistently claims diarrhea. CT showed possible gastric mass but endoscopy bu Dr Blackwell ruled that out. He had colonoscopy and [address] scans: one outside and one yesterday showing only tics. He lost 8# in the last month and 5# in the year before that. 3d ago Dr Blackwell started cipro & metronidazole but that was stopped in ER because of a negative Cdiff and lack of diverticulitis. He & nurse says he is getting generally weaker. Hospital Course Hospital Course: Off hctz and spironolactone on saline Na went up to 129. BUN went from 26 to 19 to 26 after ivf stopped. Appetite improved. Because bp was low, I stopped hydralazine and metoprolol. He felt much better and wanted to go home. Dr Blackwell raised possibility of angiogram later. Stool culture and Cdiff were negative. CT showed no diverticulitis. Cipro and flagyl were not continued. Physical Exam Vital Signs: Temp Pulse Resp BP Pulse Ox 98.4 F 69 16 108/52 L 98 02/01/18 07:26 02/01/18 07:26 02/01/18 07:26 02/01/18 07:26 02/01/18 07:26 Intake & Output 01/30/18 01/31/18 02/01/18 07:59 07:59 07:59 Intake Total 1663 Balance 1663 Weight 128 lb 8.472 oz General appearance: PRESENT: no acute distress Respiratory exam: PRESENT: clear to auscultation skyler Cardiovascular exam: ABSENT: diastolic murmur, irregular rhythm, systolic murmur GI/Abdominal exam: ABSENT: mass, organolmegaly, tenderness Extremities exam: ABSENT: pedal edema Neurological exam: PRESENT: oriented to situation Psychiatric exam: PRESENT: appropriate affect Results Laboratory Results: 02/01/18 05:52 Labs- Last Values WBC 6.8 10^3/uL (4.0-10.5) 01/29/18 15:55 RBC 3.87 10^6/uL (4.35-5.55) L 01/29/18 15:55 Hgb 12.7 g/dL (13.5-17.0) L 01/29/18 15:55 Hct 35.5 % (37.9-51.0) L 01/29/18 15:55 MCV 92 fl (80-97) 01/29/18 15:55 MCH 32.8 pg (27.0-33.4) 01/29/18 15:55 MCHC 35.8 g/dL (32.0-36.0) 01/29/18 15:55 RDW 12.6 % (11.5-14.0) 01/29/18 15:55 Plt Count 194 10^3/uL (150-450) 01/29/18 15:55 Seg Neutrophils % 81.8 % (42-78) H 01/29/18 15:55 Lymphocytes % 6.4 % (13-45) L 01/29/18 15:55 Monocytes % 10.3 % (3-13) 01/29/18 15:55 Eosinophils % 0.9 % (0-6) 01/29/18 15:55 Basophils % 0.6 % (0-2) 01/29/18 15:55 Absolute Neutrophils 5.6 10^3/uL (1.7-8.2) 01/29/18 15:55 Absolute Lymphocytes 0.4 10^3/uL (0.5-4.7) L 01/29/18 15:55 Absolute Monocytes 0.7 10^3/uL (0.1-1.4) 01/29/18 15:55 Absolute Eosinophils 0.1 10^3/uL (0.0-0.6) 01/29/18 15:55 Absolute Basophils 0.0 10^3/uL (0.0-0.2) 01/29/18 15:55 Sodium 129.4 mmol/L (137-145) L 02/01/18 05:52 Potassium 4.5 mmol/L (3.6-5.0) 02/01/18 05:52 Chloride 98 mmol/L (98-107) 02/01/18 05:52 Carbon Dioxide 18 mmol/L (22-30) L 02/01/18 05:52 Anion Gap 13 (5-19) 02/01/18 05:52 BUN 26 mg/dL (7-20) H 02/01/18 05:52 Creatinine 1.00 mg/dL (0.52-1.25) 02/01/18 05:52 Est GFR ( Amer) > 60 (>60) 02/01/18 05:52 Est GFR (Non-Af Amer) > 60 (>60) 02/01/18 05:52 Glucose 93 mg/dL (75-110) 02/01/18 05:52 Lactic Acid 0.9 mmol/L (0.7-2.1) 01/29/18 15:55 Calcium 9.5 mg/dL (8.4-10.2) 02/01/18 05:52 Total Bilirubin 0.8 mg/dL (0.2-1.3) 01/29/18 15:55 Direct Bilirubin 0.3 mg/dL (0.0-0.4) 01/29/18 15:55 Neonat Total Bilirubin Not Reportable 01/29/18 15:55 Neonat Direct Bilirubin Not Reportable 01/29/18 15:55 Neonat Indirect Bili Not Reportable 01/29/18 15:55 AST 32 U/L (17-59) 01/29/18 15:55 ALT 29 U/L (21-72) 01/29/18 15:55 Alkaline Phosphatase 94 U/L (38-126) 01/29/18 15:55 Total Protein 7.7 g/dL (6.3-8.2) 01/29/18 15:55 Albumin 4.7 g/dL (3.5-5.0) 01/29/18 15:55 Lipase 47.6 U/L (23-300) 01/29/18 15:55 Urine Color YELLOW 01/29/18 17:20 Urine Appearance CLEAR 01/29/18 17:20 Urine pH 6.0 (5.0-9.0) 01/29/18 17:20 Ur Specific [place] 1.012 01/29/18 17:20 Urine Protein NEGATIVE mg/dL (NEGATIVE) 01/29/18 17:20 Urine Glucose (UA) NEGATIVE mg/dL (NEGATIVE) 01/29/18 17:20 Urine Ketones TRACE mg/dL (NEGATIVE) H 01/29/18 17:20 Urine Blood SMALL (NEGATIVE) H 01/29/18 17:20 Urine Nitrite NEGATIVE (NEGATIVE) 01/29/18 17:20 Urine Bilirubin NEGATIVE (NEGATIVE) 01/29/18 17:20 Urine Urobilinogen NEGATIVE mg/dL (<2.0) 01/29/18 17:20 Ur Leukocyte Esterase TRACE (NEGATIVE) H 01/29/18 17:20 Urine WBC (Auto) 4 /HPF 01/29/18 17:20 Urine RBC (Auto) 2 /HPF 01/29/18 17:20 U Hyaline Cast (Auto) 8 /LPF 01/29/18 17:20 Urine Bacteria (Auto) TRACE /HPF 01/29/18 17:20 Squamous Epi Cells Auto <1 /HPF 01/29/18 17:20 Urine Mucus (Auto) RARE /LPF 01/29/18 17:20 Urine Ascorbic Acid NEGATIVE (NEGATIVE) 01/29/18 17:20 Stool Occult Blood NEGATIVE (NEGATIVE) 01/29/18 20:00 C. difficile Tox (PCR) NEGATIVE (NEGATIVE) 01/29/18 20:00 Impressions: Abdomen/Pelvis CT 01/29/18 15:07 IMPRESSION: Diverticulosis without acute inflammatory changes. Other chronic and incidental findings as detailed above. Qualifiers - * PATIENT BEING DISCHARGED WITH ANY OF THE FOLLOWING DIAGNOSIS: No Plan Discharge Plan: home. 1w ov me. OV Dr Rosalva salazar.
--- NOTE | 2018-02-02 14:02 | DISCHARGE SUMMARY E ---
Discharge Summary NAME: CECILY ESTRADA : 1930 AGE: 87Y ADMITTED: 01/31/2018 DISCHARGED: 02/01/2018 ADDENDUM: He has not had chest pain since his coronary bypass in 2014 but list it as a problem because it was the occasion of his heart surgery back then. He had never had an IL. He did have aortic stenosis at that time as well. He did not have a valve replacement. DICTATING PHYSICIAN: AURORA HERNANDEZ M.D. [id number] PHY#: [id number] ID: [id number] JOB#: [id number] ACCT: [id number] cc:AURORA HERNANDEZ M.D. >
== END 2018-02-01 09:33 | disposition home or self-care (01) | DRG 641 ==
LOC: ER 14:10 → EH 19:38 → 3S 21:23 → OBSVTOIN 01-31 14:54
PROVIDERS: ADMIT Family Medicine; ATTEND Family Medicine
DX: E87.1 Hypo-osmolality and hyponatremia (principal); I20.8 Other forms of angina pectoris; K57.90 Diverticulosis of intestine, part unspecified, without perforation or abscess without bleeding; E78.00 Pure hypercholesterolemia, unspecified; K21.9 Gastro-esophageal reflux disease without esophagitis; M15.9 Polyosteoarthritis, unspecified; I11.9 Hypertensive heart disease without heart failure; K59.00 Constipation, unspecified; Z95.1 Presence of aortocoronary bypass graft; Z85.828 Personal history of other malignant neoplasm of skin; Z79.899 Other long term (current) drug therapy; Z87.891 Personal history of nicotine dependence; Z88.1 Allergy status to other antibiotic agents; Z88.3 Allergy status to other anti-infective agents; Z91.041 Radiographic dye allergy status; Z82.49 Family history of ischemic heart disease and other diseases of the circulatory system; Z83.49 Family history of other endocrine, nutritional and metabolic diseases
CPT/HCPCS: 36415; 74177; 80048; 80053; 81001; 82272; 83605; 83690; 85025; 87045; 87205; 87493; 96360; 96361; 99285; G0378; J1650; J7030

== ENCOUNTER → 2018-02-11 | Outpatient (CLI) | payer MEDICARE ==
[2018-02-11 11:39] LABS: ANION GAP 13 (5-19); BLOOD UREA NITROGEN 22 mg/dL (7-20); CALCIUM 9.6 mg/dL (8.4-10.2); CARBON DIOXIDE 22 mmol/L (22-30); CHLORIDE 100 mmol/L (98-107); GLUCOSE 85 mg/dL (75-110); POTASSIUM 4.8 mmol/L (3.6-5.0); SODIUM 135.4 mmol/L (137-145)
== END ==
LOC: OD 09:44
PROVIDERS: ATTEND Internal Medicine Cardiovascular Disease
DX: I10 Essential (primary) hypertension (principal)
CPT/HCPCS: 36415; 80048

== ENCOUNTER → 2018-04-14 | Outpatient (CLI) | payer MEDICARE ==
[2018-04-14 09:55] LABS: ANION GAP 12 (5-19); BLOOD UREA NITROGEN 18 mg/dL (7-20); CALCIUM 9.7 mg/dL (8.4-10.2); CARBON DIOXIDE 24 mmol/L (22-30); CHLORIDE 102 mmol/L (98-107); CHOLESTEROL 145.21 mg/dL (0-200); GLUCOSE 90 mg/dL (75-110); POTASSIUM 4.8 mmol/L (3.6-5.0); SODIUM 137.8 mmol/L (137-145); TRIGLYCERIDES 79 mg/dL (<150)
[2018-04-14 10:05] LABS: DIRECT LDL 76 mg/dL (<100)
== END ==
LOC: OD 08:28
PROVIDERS: ATTEND Internal Medicine Cardiovascular Disease
DX: I10 Essential (primary) hypertension (principal); E78.00 Pure hypercholesterolemia, unspecified; Z79.899 Other long term (current) drug therapy
CPT/HCPCS: 36415; 80048; 80061

== ENCOUNTER → 2018-05-13 | Outpatient (CLI) | payer MEDICARE ==
[2018-05-13 10:39] LABS: ANION GAP 11 (5-19); BLOOD UREA NITROGEN 27 mg/dL (7-20); CALCIUM 9.8 mg/dL (8.4-10.2); CARBON DIOXIDE 24 mmol/L (22-30); CHLORIDE 100 mmol/L (98-107); GLUCOSE 96 mg/dL (75-110); POTASSIUM 4.6 mmol/L (3.6-5.0); SODIUM 135.3 mmol/L (137-145)
[2018-05-13 15:25] LABS: HEMATOCRIT 35.3 % (37.9-51.0); HEMOGLOBIN 12.7 g/dL (13.5-17.0); MEAN CORPUSCULAR HEMOGLOBIN 32.4 pg (27.0-33.4); MEAN CORPUSCULAR VOLUME 90 fl (80-97); PLATELET COUNT 172 10^3/uL (150-450); RED BLOOD COUNT 3.92 10^6/uL (4.35-5.55); RED CELL DISTRIBUTION WIDTH 12.9 % (11.5-14.0); WHITE BLOOD COUNT 6.3 10^3/uL (4.0-10.5)
== END ==
LOC: OD 08:16
PROVIDERS: ATTEND Physician Assistant
DX: I10 Essential (primary) hypertension (principal); E87.1 Hypo-osmolality and hyponatremia; E87.6 Hypokalemia; Z79.899 Other long term (current) drug therapy
CPT/HCPCS: 36415; 80048; 82607; 84443; 85027

== ENCOUNTER → 2018-07-15 | Outpatient (CLI) | payer MEDICARE ==
[2018-07-15 10:05] LABS: HEMATOCRIT 36.9 % (37.9-51.0); HEMOGLOBIN 13.1 g/dL (13.5-17.0); MEAN CORPUSCULAR HEMOGLOBIN 32.3 pg (27.0-33.4); MEAN CORPUSCULAR HGB CONC 35.6 g/dL (32.0-36.0); MEAN CORPUSCULAR VOLUME 91 fl (80-97); PLATELET COUNT 152 10^3/uL (150-450); RED BLOOD COUNT 4.06 10^6/uL (4.35-5.55); RED CELL DISTRIBUTION WIDTH 13.8 % (11.5-14.0)
== END ==
LOC: OD 08:39
PROVIDERS: ATTEND Internal Medicine Cardiovascular Disease
DX: R41.3 Other amnesia (principal)
CPT/HCPCS: 36415; 85027

== ENCOUNTER → 2018-10-15 | Outpatient (CLI) | payer MEDICARE ==
[2018-10-15 08:47] LABS: HEMATOCRIT 38.5 % (37.9-51.0); HEMOGLOBIN 13.5 g/dL (13.5-17.0); MEAN CORPUSCULAR HEMOGLOBIN 31.9 pg (27.0-33.4); MEAN CORPUSCULAR HGB CONC 35.1 g/dL (32.0-36.0); MEAN CORPUSCULAR VOLUME 91 fl (80-97); PLATELET COUNT 178 10^3/uL (150-450); RED BLOOD COUNT 4.24 10^6/uL (4.35-5.55); RED CELL DISTRIBUTION WIDTH 13.4 % (11.5-14.0); WHITE BLOOD COUNT 5.2 10^3/uL (4.0-10.5)
[2018-10-15 09:09] LABS: ALANINE AMINOTRANSFERASE 36 U/L (21-72); ALBUMIN 4.6 g/dL (3.5-5.0); ALKALINE PHOSPHATASE 111 U/L (38-126); ANION GAP 10 (5-19); ASPARTATE AMINO TRANSFERASE 34 U/L (17-59); BILIRUBIN,DIRECT 0.2 mg/dL (0.0-0.4); BILIRUBIN,TOTAL 0.7 mg/dL (0.2-1.3); BLOOD UREA NITROGEN 24 mg/dL (7-20); CALCIUM 10.2 mg/dL (8.4-10.2); CARBON DIOXIDE 29 mmol/L (22-30); CHLORIDE 98 mmol/L (98-107); CHOLESTEROL 153.99 mg/dL (0-200); GLUCOSE 97 mg/dL (75-110); POTASSIUM 4.4 mmol/L (3.6-5.0); SODIUM 136.7 mmol/L (137-145); TOTAL PROTEIN 7.4 g/dL (6.3-8.2); TRIGLYCERIDES 95 mg/dL (<150)
[2018-10-15 09:20] LABS: DIRECT LDL 95 mg/dL (<100)
== END ==
LOC: LAB 08:31
PROVIDERS: ATTEND Physician Assistant
DX: D64.9 Anemia, unspecified (principal); E78.00 Pure hypercholesterolemia, unspecified; I10 Essential (primary) hypertension; Z79.899 Other long term (current) drug therapy; E83.42 Hypomagnesemia
CPT/HCPCS: 36415; 80048; 80061; 80076; 83735; 85027

== ENCOUNTER → 2018-11-14 | Outpatient (CLI) | payer MEDICARE ==
[2018-11-14 10:02] LABS: ALANINE AMINOTRANSFERASE 36 U/L (21-72); ALBUMIN 4.2 g/dL (3.5-5.0); ALKALINE PHOSPHATASE 95 U/L (38-126); ASPARTATE AMINO TRANSFERASE 30 U/L (17-59); BILIRUBIN,DIRECT 0.4 mg/dL (0.0-0.4); BILIRUBIN,TOTAL 0.9 mg/dL (0.2-1.3); CHOLESTEROL 111.45 mg/dL (0-200); TOTAL PROTEIN 6.5 g/dL (6.3-8.2); TRIGLYCERIDES 73 mg/dL (<150)
[2018-11-14 10:13] LABS: DIRECT LDL 46 mg/dL (<100)
== END ==
LOC: LAB 09:08
PROVIDERS: ATTEND Physician Assistant
DX: E78.00 Pure hypercholesterolemia, unspecified (principal); Z79.899 Other long term (current) drug therapy
CPT/HCPCS: 36415; 80061; 80076

== ENCOUNTER → 2018-11-28 | Outpatient (CLI) | payer MEDICARE ==
[2018-11-28 08:46] LABS: HEMATOCRIT 36.1 % (37.9-51.0); HEMOGLOBIN 12.9 g/dL (13.5-17.0); MEAN CORPUSCULAR HEMOGLOBIN 31.8 pg (27.0-33.4); MEAN CORPUSCULAR HGB CONC 35.6 g/dL (32.0-36.0); MEAN CORPUSCULAR VOLUME 89 fl (80-97); PLATELET COUNT 164 10^3/uL (150-450); RED BLOOD COUNT 4.04 10^6/uL (4.35-5.55); RED CELL DISTRIBUTION WIDTH 13.7 % (11.5-14.0); WHITE BLOOD COUNT 4.5 10^3/uL (4.0-10.5)
[2018-11-28 09:03] LABS: ALANINE AMINOTRANSFERASE 29 U/L (21-72); ALKALINE PHOSPHATASE 82 U/L (38-126); ANION GAP 8 (5-19); ASPARTATE AMINO TRANSFERASE 32 U/L (17-59); BILIRUBIN,DIRECT 0.2 mg/dL (0.0-0.4); BILIRUBIN,TOTAL 0.7 mg/dL (0.2-1.3); BLOOD UREA NITROGEN 21 mg/dL (7-20); CALCIUM 10.1 mg/dL (8.4-10.2); CARBON DIOXIDE 26 mmol/L (22-30); CHLORIDE 101 mmol/L (98-107); CHOLESTEROL 119.38 mg/dL (0-200); GLUCOSE 94 mg/dL (75-110); POTASSIUM 4.2 mmol/L (3.6-5.0); SODIUM 134.9 mmol/L (137-145); TOTAL PROTEIN 6.7 g/dL (6.3-8.2); TRIGLYCERIDES 60 mg/dL (<150)
[2018-11-28 09:13] LABS: DIRECT LDL 63 mg/dL (<100)
== END ==
LOC: LAB 08:13
PROVIDERS: ATTEND Physician Assistant
DX: E78.00 Pure hypercholesterolemia, unspecified (principal); I10 Essential (primary) hypertension; E83.42 Hypomagnesemia; Z79.899 Other long term (current) drug therapy
CPT/HCPCS: 36415; 80048; 80061; 80076; 83735; 85027

== ENCOUNTER → 2019-01-13 | Outpatient (CLI) | payer MEDICARE ==
[2019-01-13 09:28] LABS: ALANINE AMINOTRANSFERASE 32 U/L (21-72); ALBUMIN 4.3 g/dL (3.5-5.0); ALKALINE PHOSPHATASE 72 U/L (38-126); ANION GAP 14 (5-19); ASPARTATE AMINO TRANSFERASE 33 U/L (17-59); BILIRUBIN,DIRECT 0.3 mg/dL (0.0-0.4); BILIRUBIN,TOTAL 0.7 mg/dL (0.2-1.3); BLOOD UREA NITROGEN 23 mg/dL (7-20); CALCIUM 9.6 mg/dL (8.4-10.2); CARBON DIOXIDE 23 mmol/L (22-30); CHLORIDE 101 mmol/L (98-107); CHOLESTEROL 109.78 mg/dL (0-200); GLUCOSE 98 mg/dL (75-110); POTASSIUM 4.3 mmol/L (3.6-5.0); SODIUM 138.2 mmol/L (137-145); TOTAL PROTEIN 6.8 g/dL (6.3-8.2); TRIGLYCERIDES 82 mg/dL (<150)
[2019-01-13 09:39] LABS: DIRECT LDL 50 mg/dL (<100)
== END ==
LOC: LAB 08:51
PROVIDERS: ATTEND Internal Medicine Cardiovascular Disease
DX: E78.00 Pure hypercholesterolemia, unspecified (principal); I10 Essential (primary) hypertension; Z79.899 Other long term (current) drug therapy
CPT/HCPCS: 36415; 80048; 80061; 80076